=== PATIENT | male | born 1985 | race Caucasian/White ===

== ENCOUNTER 2018-09-19 09:12 | Day surgery (SDC) | payer OTHER ==
[2018-09-19] MEDS ORDERED: CEFAZOLIN 2 GM/50 ML (PMX) 50 ML IVPB (10:30)
[2018-09-19] MEDS ORDERED: SOD CHLORIDE 0.9% 1,000 ML IV (10:30)
[2018-09-19 10:46] LABS: ADD MAN DIFF? NO
[2018-09-19 10:48] LABS: BASOPHILS % 0.4 % (0.0-2.0); EOSINOPHILS # 0.2 10^3/ul (0.0-0.5); EOSINOPHILS % 2.2 % (0.0-7.0); HEMATOCRIT 45.4 % (42.0-52.0); HEMOGLOBIN 15.4 g/dl (14.0-18.0); LYMPHOCYTES # 2.6 10^3/ul (0.8-2.9); MEAN CORPUSCULAR HEMOGLOBIN 28.2 pg (29.0-33.0); MEAN CORPUSCULAR HGB CONC 33.9 g/dl (32.0-37.0); MEAN CORPUSCULAR VOLUME 83.2 fl (82.0-101.0); MONOCYTE # 0.4 10^3/ul (0.3-0.9); NEUTROPHIL # 3.8 10^3/ul (1.6-7.5); PLATELET COUNT 300 10^3/UL (140-415); RED BLOOD COUNT 5.46 10^6/ul (4.70-6.10); RED CELL DISTRIBUTION WIDTH 12.4 % (11.5-14.5)
[2018-09-19 10:48] LABS: WHITE BLOOD COUNT 7.1 10^3/ul (4.8-10.8)
[2018-09-19 11:13] LABS: ALANINE AMINOTRANSFERASE 39 IU/L (13-69); ALBUMIN 4.5 g/dl (3.3-4.9); ALKALINE PHOSPHATASE 97 IU/L (42-121); ANION GAP 8 (5-13); ASPARTATE AMINO TRANSFERASE 28 IU/L (15-46); BILIRUBIN,INDIRECT 0.6 mg/dl (0-1.1); BILIRUBIN,TOTAL 0.6 mg/dl (0.2-1.3); BLOOD UREA NITROGEN 11 mg/dl (7-20); CALCIUM 9.5 mg/dl (8.4-10.2); CARBON DIOXIDE 28 mmol/L (21-31); CHLORIDE 105 mmol/L (97-110); CREATININE 0.75 mg/dl (0.61-1.24); Estimated GFR > 60 mL/min (>60); GLUCOSE 95 mg/dl (70-220); POTASSIUM 3.8 mmol/L (3.5-5.1); SODIUM 141 mmol/L (135-144); TOTAL PROTEIN 7.5 g/dl (6.1-8.1)
[2018-09-19 11:33] LABS: INR 0.97
[2018-09-19 11:34] LABS: PARTIAL THROMBOPLASTIN TIME 33.9 Sec (23.0-35.0)
[2018-09-19] MEDS ORDERED: LIDOCAINE 2% (SDV) 5 ML INJ (14:22)
[2018-09-19] MEDS ORDERED: ROCURONIUM 50 MG INJ (14:22)
[2018-09-19] MEDS ORDERED: PROPOFOL 20 ML (14:22)
[2018-09-19] MEDS ORDERED: CEFAZOLIN 1 GM INJ (14:22)
[2018-09-19] MEDS ORDERED: MIDAZOLAM 1 MG/ML 2 ML INJ (14:23)
[2018-09-19] MEDS ORDERED: ROPIVACAINE 0.5 % 30 ML VIAL (14:28)
[2018-09-19] MEDS ORDERED: ONDANSETRON 4 MG INJ (14:47)
[2018-09-19] MEDS ORDERED: SUGAMMADEX SODIUM 200 MG/2 ML VIAL IV (15:17)
[2018-09-19] MEDS ORDERED: HYDROmorphONE 1 MG/5 ML IV SYRINGE IV (15:30)
[2018-09-19] MEDS: HYDROmorphONE 1 MG/5 ML IV SYRINGE IV ×2 (15:44→16:03)
[2018-09-19] MEDS: HYDROCODONE/APAP (5/325) TAB PO (16:52)
== END 2018-09-19 17:55 | disposition home or self-care (01) ==
LOC: SDS 09:12
DX: K43.6 Other and unspecified ventral hernia with obstruction, without gangrene (principal)
CPT/HCPCS: 49653; 80053; 85025; 85610; 85730